=== PATIENT | male | born 1955 | race Caucasian/White ===

== ENCOUNTER → 2018-01-22 | Outpatient (CLI) | payer OTHER | LOC: FIMAGING 09:49 | PROVIDERS: ATTEND Physician Assistant | DX: M17.11 Unilateral primary osteoarthritis, right knee (principal) ==

== ENCOUNTER 2018-02-27 05:40 | Observation (INO) | payer OTHER ==
[2018-02-27] MEDS ORDERED: ACETAMINOPHEN 325 MG TAB PO ONE (06:00)
[2018-02-27] MEDS ORDERED: TRANEXAMIC ACID 2,000 MG in NS 100 ML IV ONE (06:00)
[2018-02-27] MEDS ORDERED: ONDANSETRON 4 MG/2 ML VIAL IVP ONE (06:00)
[2018-02-27] MEDS ORDERED: TRANEXAMIC ACID 3,000 MG in NS (SYRINGE) 50 ML IRR ONE (06:00)
[2018-02-27] MEDS ORDERED: GABAPENTIN 300 MG CAP PO ONE (06:00)
[2018-02-27] MEDS ORDERED: DEXAMETHASONE 4 MG/ML VIAL IVP ONE (06:00)
[2018-02-27] MEDS ORDERED: ROPIVACAINE 0.2% 80 MG, EPINEPHrine 0.2 MG, KETOROLAC TROMETHAMINE 30 MG in SYRINGE 0 ML IU ONE (06:00)
[2018-02-27] MEDS ORDERED: FAMOTIDINE 20 MG TAB PO ONE (06:00)
[2018-02-27] MEDS ORDERED: POVIDONE-IODINE 20 ML in SODIUM CL IRRIG SOLUTION 500 ML IRR ONE (06:00)
[2018-02-27] MEDS ORDERED: ceFAZolin 2 GM/DEXTROSE 100 ML IV ONE (06:00)
[2018-02-27] MEDS ORDERED: LR 1,000 ML IV ONE (06:01)
[2018-02-27] MEDS ORDERED: LIDOCAINE 1% 2 ML INJ ID PRN (06:01)
[2018-02-27] MEDS ORDERED: ceFAZolin 1 GM/5 ML SYR ONE (06:35)
[2018-02-27] MEDS ORDERED: VANCOMYCIN 1 GM VIAL ONE (06:35)
[2018-02-27] MEDS ORDERED: TRANEXAMIC ACID 3,000 MG/50 ML BAG IRR ONE (07:04)
[2018-02-27] MEDS ORDERED: MIDAZOLAM 2 MG/2 ML VIAL ONE ×2 (07:07→07:30)
--- NOTE | 2018-02-27 07:07 | PDHPUP ---
History & Physical Update H&P update statement: This history and physical update is based on an assessment of the patient which was completed after admission or registration (within 24 hours), but prior to the surgery/procedure. H&P update: H&P reviewed & patient examined
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
[2018-02-27] MEDS ORDERED: PROPOFOL/EMULSION 500 MG/50 ML BOTTLE IV ONE (07:30)
[2018-02-27] MEDS ORDERED: fentaNYL 250 MCG/5 ML INJ ONE (07:41)
[2018-02-27] MEDS ORDERED: ONDANSETRON 4 MG/2 ML VIAL ONE (09:14)
[2018-02-27] MEDS ORDERED: METOCLOPRAMIDE 10 MG/2 ML VIAL IVP PRN ×2 (09:16→10:11)
[2018-02-27] MEDS ORDERED: LABETALOL HCL 5 MG/ML 20 ML MDV IVP PRN (09:16)
[2018-02-27] MEDS ORDERED: MEPERIDINE 25 MG/0.5 ML AMP IVP PRN (09:16)
[2018-02-27] MEDS ORDERED: ACETAMINOPHEN 500 MG TAB PO PRN (09:16)
[2018-02-27] MEDS ORDERED: ONDANSETRON 4 MG/2 ML VIAL IVP PRN ×2 (09:16→10:11)
[2018-02-27] MEDS ORDERED: NALOXONE HCL 0.4 MG/ML INJ IVP PRN (09:16)
[2018-02-27] MEDS ORDERED: LR 500 ML IV PRN (09:16)
[2018-02-27] MEDS ORDERED: PROMETHAZINE HCL 25 MG/ML INJ IVP PRN ×2 (09:16→10:11)
[2018-02-27] MEDS ORDERED: oxyCODONE IR 5 MG TAB PO PRN (09:16)
--- NOTE | 2018-02-27 09:19 | POSTANESTH ---
Post Anesthetic Evaluation Respiratory Status: Normal, Stable Level of Consciousness/Mental Status: Can Participate in Eval Pain Control: Adequate, Prn Tx Ordered Nausea/Vomiting Control: Adequate, Prn Tx Ordered Complications Possibly Related to Anesthesia: None Noted
[2018-02-27] MEDS ORDERED: ROPIVACAINE HCL 150 MG/30 ML INJ ONE (09:23)
[2018-02-27] MEDS ORDERED: LIDOCAINE 2% 5 ML SDV ONE (09:28)
--- NOTE | 2018-02-27 09:52 | POSTOPPROG ---
Post Op Note Date of Operation: 02/27/18 Surgeon: Nas Connelly Service Mechanic: Hitesh/Hermes Anesthesiologist: Loree Acevedo Anesthesia: GET(General Endotracheal) Post-op Diagnosis: Right knee medial compartment degenerative arthritis Procedure: Right knee Gustavo assisted medial hemiarthroplasty. Inf/Abcess present in the surg proc area at time of surgery?: No EBL: 50-100
[2018-02-27] MEDS ORDERED: DIPHENOXYLATE/ATROPINE LOMOTIL 1 TAB PO PRN (10:11)
[2018-02-27] MEDS ORDERED: MAGNESIUM HYDROXIDE 30 ML UDCUP PO PRN (10:11)
[2018-02-27] MEDS ORDERED: ONDANSETRON DISINTEGRATING 4 MG TAB PO PRN (10:11)
[2018-02-27] MEDS ORDERED: BISACODYL 10 MG SUPP PR PRN (10:11)
[2018-02-27] MEDS ORDERED: NS 500 ML IV PRN (10:11)
[2018-02-27] MEDS ORDERED: traMADol 50 MG TAB PO PRN (10:11)
[2018-02-27] MEDS ORDERED: CYCLOBENZAPRINE 10 MG TAB PO PRN (10:11)
[2018-02-27] MEDS ORDERED: PROMETHAZINE HCL 25 MG SUPPR PR PRN (10:11)
[2018-02-27] MEDS ORDERED: diphenhydrAMINE 25 MG CAP PO PRN (10:11)
[2018-02-27] MEDS ORDERED: SUMAtriptan 50 MG TAB PO PRN (10:11)
[2018-02-27] MEDS ORDERED: TEMAZEPAM 15 MG CAP PO PRN (10:11)
[2018-02-27] MEDS ORDERED: POLYETHYLENE GLYCOL 3350 17 GM PKT PO PRN (10:11)
[2018-02-27] MEDS ORDERED: LACTULOSE 20 GM/30 ML UDCUP PO PRN (10:11)
[2018-02-27] MEDS: fentaNYL 100 MCG/2 ML INJ IVP PRN ×2 (10:17→10:22)
[2018-02-27] MEDS ORDERED: fentaNYL 100 MCG/2 ML INJ ONE (10:17)
[2018-02-27] MEDS ORDERED: HYDROmorphONE/DILAUDID 2 MG/ML INJ ONE (10:17)
[2018-02-27] MEDS: HYDROmorphONE/DILAUDID 2 MG/ML INJ IVP PRN ×3 (10:23→11:43)
[2018-02-27] MEDS ORDERED: LR 1,000 ML IV SCH (10:30)
--- NOTE | 2018-02-27 11:20 | GOP ---
DATE OF OPERATION: 02/27/2018 SURGEON: Nas Connelly MD WARDROBE SUPERVISOR: Reggie Proctor CRICKET COACH and Efra Mirza P.A.-C. ANESTHESIA: General. ANESTHESIOLOGIST: Loree Acevedo MD. PREOPERATIVE DIAGNOSIS: Right knee medial compartment degenerative arthritis. POSTOPERATIVE DIAGNOSIS: Right knee medial compartment degenerative arthritis. PROCEDURE PERFORMED: Right knee Gustavo assisted medial compartment hemiarthroplasty. FINDINGS: DESCRIPTION OF PROCEDURE: The patient was given 2 g of preoperative IV Ancef within 60 minutes of neff rgery. He also received 1000 mg of IV tranexamic acid. He was placed on the operating room table an adelina Acevedo attempted spinal anesthesia. This was unsuccessful. He was placed supine and given genera l anesthesia. A Leblanc catheter was not used. He wore a SANTOS stocking and SCD on the nonoperative leg . His right lower extremity was prepped with ChloraPrep from the upper thigh tourniquet to the tips of the toes. It was draped free using sterile sheets, towels and Ioban plastic drapes. The Smash [place]et time-out was performed to verify the correct surgical side and site and the correct patient identity. The [place] time-out was also performed. The DeMayo leg holding device was steri yessi attached to the operating room table and used throughout the procedure to help position the knee . Two bicortical 3 mm partially threaded pins were inserted in the anteromedial cortex of the femur abo ut 4-5 inches proximal to the superior pole of the patella. They were inserted with the knee in 90 d egrees of flexion. Two bicortical 3 mm partially threaded pins were inserted into the anteromedial c ortex of the tibia about 4-5 inches distal to the tibial tubercle. The computer arrays were attached to both sets of pins. I confirmed that the arrays were properly positioned and visualized by the co mputer. His leg was exsanguinated with a 6-inch compressive wrap and the tourniquet was inflated to 300 mmHg. I made a 4-5 inch curved medial parapatellar incision. Subcutaneous tissues were sharply divided, an d hemostasis was obtained using electrocautery. The capsule and synovium were opened in a medial par apatellar fashion. He had significant degenerative changes in his medial compartment. It was eroded down to subchondral bone on the medial tibial plateau and significant cartilage damage and thinning on the medial femoral condyle. The articular cartilage in the patellofemoral joint was in good condi tion with only some minor softening and fibrillation. The articular surface that I could see on his lateral femoral condyle was in good condition. His medial capsule and periosteum were elevated off t he rim of the medial tibial plateau all the way around to the posteromedial corner. I slightly relea sed his medial collateral ligament in order to balance the medial side of the knee. The anterior por tion of his medial meniscus was excised. The femoral and tibial check points were inserted, checked and confirmed. I then performed hip miguelito tration followed by registration of the medial and lateral malleoli. The bony anatomy of the femur a nd the tibia in the medial compartment were registered. Joint balancing was checked and captured in multiple poses from 10 degrees of flexion to 100 degrees of flexion. I used a curved osteotome in the medial compartment to properly tension the medial colla teral ligament. Implant position was adjusted a small amount to create 1 mm or less of looseness of the medial side of the knee throughout the range. I confirmed the preoperative plan for a size 5 fem ur and a size tibia. The robotic arm had previously been registered. The femur was prepared first. This was followed by the burring preparation of the medial tibial plateau with the robotic assist. The articular surfaces were trimmed with a rongeur. The anchor holes in the femur and tibia were completed. I also prepar ed the groove for the keel on the femur. I excised the posterior horn of the medial meniscus and mad e sure I removed all of the appropriate soft tissues from the back of the knee. I did a trial reduction with a size 5 femur and the size tibia. With an 8 mm polyethylene trial inse rt in place, the knee came to full extension and easily flexed to 130 degrees. He had about 2-1/2 to 3 degrees of varus residual alignment. His medial collateral ligament was stable in 5 degrees of fl exion, 45 degrees of flexion and 90 degrees of flexion. The surfaces were prepared for cementing. They were carefully cleaned with the pulsating lavage. Th e CarboJet device was used to blow dry the cancellous surfaces. A single batch of high viscosity met hylmethacrylate cement with 1 g of powdered vancomycin was mixed. While it was still in a doughy sta te, I packed the PEG holes on the tibial surface and layered a thin layer of additional cement on the surface. A small amount of cement was placed on the undersurface of the tray. The tray was inserte d and tapped securely into place. Excess cement was removed before it hardened. I packed a small am ount of cement in the PEG holes for the femur and added some additional cement on the back of the fem oral component. This was inserted and tapped securely into place. Excess cement was removed before it hardened. There was a smooth transition from the anterior articular cartilage on the femoral cond yle to the metal surface of the femoral component anteriorly. I did a trial reduction with the 8 mm tibial insert. This was held in place until the cement was hardened. I then removed the trial inser t. There was a little additional cement posterior to the tibial tray and that was removed. I then i nserted the 8 mm size 5 Gustavo X3 uni-polyethylene insert. I had difficulty engaging it posteriorly. In the process I damaged the plastic lip. I had to open a new plastic tibial insert. This time it w ent in without any difficulty and it locked appropriately. The tourniquet was deflated. The total tourniquet time was 1 hour and 33 minutes. 50 cc of tranexam ic acid solution was instilled locally into the joint. The wound was packed with a lap and the knee was wrapped with a 6-inch compressive wrap for 2 or 3 minutes. The tibial and femoral check points w ere removed. The 2 pins in the femur and the 2 pins in the tibia were removed. 40 mL of the joint a nesthetic cocktail were injected into the medial capsule, the vastus medialis tendon and muscle area and the subcutaneous tissues along the skin edges. The vastus medialis portion of the extensor mecha nism was repaired with several interrupted [id number] #2 FiberWire sutures. The capsule and syn ovium were closed first with multiple interrupted [id number] 0 PDS sutures, followed by a runnin g #2 barbed Ethicon Stratafix PDO suture. Subcutaneous tissues were closed with a running 0 barbed E thicon Stratafix Monoderm suture. The skin was closed with a running 3-0 barbed Ethicon Stratafix Mo noderm subcuticular suture. The skin edges were reapproximated and sealed with half-inch Steri-Strip s. The puncture wounds were closed with one interrupted 3-0 Monocryl subcuticular suture in each pun cture wound and then covered with Steri-Strips. His incision was covered with a long-leg waterproof Mepilex surgical dressing. This was followed by a 6 inch compressive wrap, and a long-leg SANTOS stocki ng. The cooling device was applied. The Mepilex sacral dressing was also applied. The sponge and needle count were correct on 2 occasions. I used a Gustavo Restoris MCK femoral component in size 5. The tibial tray was a Gustavo Restoris MCK in s ize 5. The tibial insert was a size 5 with 8 mm polyethylene thickness. Reggie Proctor and Bo Mirza acted as surgical assistants. Their assistance was a medical necess ity for safe completion of the procedure. /[id number]/MODL
[2018-02-27] MEDS ORDERED: oxyCODONE IR 5 MG TAB ONE (12:00)
[2018-02-27] MEDS ORDERED: ACETAMINOPHEN 325 MG TAB ONE (13:01)
[2018-02-27] MEDS ORDERED: KETOROLAC 15 MG/1 ML SDV ONE (13:01)
[2018-02-27] MEDS: ACETAMINOPHEN 325 MG TAB PO SCH ×3 (13:03→23:42)
[2018-02-27] MEDS: KETOROLAC 15 MG/1 ML SDV IVP SCH ×3 (13:04→23:41)
[2018-02-27] MEDS: oxyCODONE IR 5 MG TAB PO PRN (15:04)
[2018-02-27] MEDS: ceFAZolin 2 GM/DEXTROSE 100 ML IV SCH ×2 (15:05→23:41)
[2018-02-27] MEDS: ASPIRIN 325 MG TAB PO SCH (20:18)
[2018-02-27] MEDS: SENNOSIDES/DOCUSATE SODIUM TAB PO SCH (20:19)
[2018-02-27] MEDS: FAMOTIDINE 20 MG TAB PO SCH (20:19)
[2018-02-27] MEDS ORDERED: TAMSULOSIN HCL 0.4 MG CAP PO SCH (21:00)
[2018-02-28] MEDS: oxyCODONE IR 5 MG TAB PO PRN (04:36)
[2018-02-28] MEDS: KETOROLAC 15 MG/1 ML SDV IVP SCH (05:53)
[2018-02-28] MEDS: ACETAMINOPHEN 325 MG TAB PO SCH ×2 (05:57→12:58)
[2018-02-28] MEDS: FAMOTIDINE 20 MG TAB PO SCH (08:45)
[2018-02-28] MEDS: ASPIRIN 325 MG TAB PO SCH (08:45)
[2018-02-28] MEDS: SENNOSIDES/DOCUSATE SODIUM TAB PO SCH (08:46)
[2018-02-28] MEDS ORDERED: FERROUS SULFATE 140 MG TAB.ER PO SCH (09:00)
--- NOTE | 2018-02-28 09:32 | SOAPPROG ---
SOAP Progress Note Assessment/Plan: Assessment: Awake and alert. Moderate pain. He has been walking around the room. Postop H&H are good. Postop films look good. Plan: Continue physical therapy today for walking and stairs. Discharge later today. 02/28/18 09:31 Objective: Vital Signs Temp Pulse Resp BP Pulse Ox 36.8 C 68 14 118/66 96 02/28/18 07:30 02/28/18 07:30 02/28/18 07:30 02/28/18 07:30 02/28/18 07:30 Laboratory Results 02/28/18 04:45 02/27/18 02/28/18 03/01/18 05:59 05:59 05:59 Intake Total 2270 500 Output Total 1700 100 Balance 570 400 ICD10 Worksheet Patient Problems: Problems Problem Status Onset Osteoarthritis of right knee Acute
--- NOTE | 2018-02-28 09:59 | ASMTLACE ---
LACE Length of stay for Answers: 2 days current admission Acuity / Level of Answers: No Care: Did the patient have an inpatient admission? Comorbidities - select Answers: Opioid dependence all that apply / Chronic pain # of Emergency department Answers: 0 visits in the last 6 months Score: 6 Date Signed: 02/28/2018 09:58 AM Electronically Signed By:QUYEN Forrester
--- NOTE | 2018-02-28 10:00 | ASMTCMCOM ---
CM Note CM Note Notes: Pt had planned OA of knee, resides with spouse. PT rec home/outpatient. Pt to have outpatient PT per MD rec. No CM d/c needs identified. Date Signed: 02/28/2018 09:59 AM Electronically Signed By:QUYEN Forrester
--- NOTE | 2018-02-28 10:06 | GDS ---
ADMISSION DIAGNOSIS: Right knee medial compartment degenerative arthritis. DISCHARGE DIAGNOSIS: Right knee medial compartment degenerative arthritis. OPERATION PERFORMED: February 27, right knee Gustavo medial compartment Uni arthroplasty. POSTOPERATIVE COMPLICATIONS: None. CONDITION ON DISCHARGE: Improved. DESCRIPTION OF HOSPITAL COURSE: The patient was admitted to the hospital on the morning of surgery. His admission CBC was normal. The same day, under a combination of general anesthesia, and adductor canal block he underwent a right medial compartment Gustavo hemiarthroplasty. Postoperatively, he was treated with multimodal DVT prophylaxis, including aspirin. On the first postoperative day, his hemo globin and hematocrit were 13.1 and 39.0. He was seen by Physical Therapy and made good progress wit h ambulation, stairs, knee range of motion. By the time of discharge, he was afebrile and was indepe ndent walking with a walker. DISPOSITION: The patient discharged to his home. He will have outpatient physical therapy. Use SANTOS stockings for 1 week. Continue aspirin 325 mg p.o. daily for 21 days. He has prescriptions for oxy codone, tramadol, and Celebrex for pain control. He may progress to full weightbearing as tolerated. I will see him back in the office on March 15, 2018. If there are any problems, he is to call roosevelt petersen at the office. /[id number]/MODL
[2018-02-28] MEDS ORDERED: ROPIVACAINE HCL 150 MG/30 ML INJ ONE (10:13)
[2018-02-28] MEDS ORDERED: LIPID EMULSION 20% 100 ML IV PRN (10:47)
--- NOTE | 2018-02-28 10:51 | PDPAINCON ---
Pain Management Consultation Patient referred by : Maricel - Subjective Pain is: low, well controlled Activity: able to ambulate - Objective Technique: continuous peripheral nerve block (Catheter pulled after bolus given. Tip intact.) Continuous infusion: ropivicaine Catheter site: clean, dry, intact Sensory and motor exam: consistent with block Vital signs: stable
[2018-02-28 12:26] VITALS: BP 128/60
== END 2018-02-28 13:16 | disposition home or self-care (01) ==
LOC: F3N 05:40
PROVIDERS: ADMIT Orthopaedic Surgery; ATTEND Orthopaedic Surgery
DX: M17.11 Unilateral primary osteoarthritis, right knee (principal)
CPT/HCPCS: 27446; 73560; 97110; 97116; 97161; 97165; 97530; 97535; G0378; C1713; J0171; J0690; J1100; J1170; J1885; J2250; J2405; J2704; J2795; J3010; J3370